=== PATIENT | male | born 1990 | race Caucasian/White ===

== ENCOUNTER → 2016-12-14 | Outpatient (CLI) | payer MEDICAID ==
[~2016-12-14] MED LIST: BACTRIM DS 8001 TA1 PO; BACTROBAN2% TP; DOXYCYCLINE HY100 M4 PO; KEFLEX 500MG.500 MG PO
== END ==
LOC: RT 15:53
DX: G47.33 Obstructive sleep apnea (adult) (pediatric) (principal)

== ENCOUNTER 2017-01-19 20:05 | Emergency (ER) | payer MEDICAID ==
[~2017-01-19] VITALS: Ht 180.3 cm; Wt 102.1 kg
--- NOTE | 2017-01-19 20:24 | Urgent Treatment Center Report ---
History of Present Issue Date/Time Seen by Provider 01/19/17 2017 Visit Reason Pt arrived:Walked Presenting Problem:FLARE UP OF GOUT IN MY RT FOOT SINCE TUESDAY. Location if Accident: Onset of symptoms date/time:/ or onset unknown for:MEDICAL HX UNKNOWN Have you (or family members/close friends) recently traveled outside the [place]? N If Yes, where/when: Have you had exposure to infectious disease within the past month? TB? Other? Specify: Patient states that he has a history of gout State that he thinks he is having a gout flare up State that he has been having pain in his right foot in his right great toe and runs up his foot since Tuesday State that he has an appointment with his family doctor tomorrow but foot was hurting tonight so he came on in to start treatment ALLERGIES Coded Allergies: No Known Allergies (08/04/16) Home Medications Reported Medications No Known Home Medications History Medical History General CAD? No Angina: No [place]: No Hypertension? No Hyperlipidemia? No CHF? No DVT? No PE? No COPD? No Asthma? No Anemia? No GERD? No Gastric ulcers? No GI Bleed? No Hernia? No Thyroid Problems? No Hypothyroidism? No CVA? No Seizures? No Diabetes? No Renal Insuffiency? No UTI? No Stones? No BPH? No GB Disease: No Nephritic Syndrome? No Asplenia? No Hepatitis? No Sickle Cell Disease? No Arthritis? No Migraines? No Cataracts? No Glaucoma? No MRSA? No HIV? No TB? No Anxiety? No Depression? No Cancer? No More? No Immunization HX DT/Tetanus 5-10 Years Ago Surgical Hx Previous Surgery?N Social History Smoking Hx Smoker: Never Smoker Tobacco: No Packs/day N/A Alcohol Alcohol: No Review of Systems All Other Systems Reviewed and Negative Comment Pain redness and swelling in right great toe and foot has history of gout thinks he may be having a gout flare up Physical Exam Vital Signs Vital Signs Date Time Temp Pulse Resp B/P Pulse O2 O2 Flow FiO2 Ox Delivery Rate 01/19 2033 18 01/20 2012 97.9 106 20 118/85 98 General Appearance normal appearance, WD/WN, no apparent distress Respiratory Status Yes: trachea midline, chest symmetrical, non tender chest. No: respiratory distress. 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 No Results/Orders Laboratory Tests 01/19/172028: Uric Acid 9.7 H Current Medication Orders Sig/Raman Start time Last Medication Dose Route Stop Time Status Admin Ketorolac 60 MG ONCE ONE 01/19 2030 DC 01/19 Tromethamine IM 01/19 Methylprednisolone 125 MG ONCE ONE 01/19 2030 DC 01/19 Sodium Succinate IM 01/19 Ketorolac 0 .STK-MED ONE 01/19 2021 DC Tromethamine .ROUTE Methylprednisolone 0 .STK-MED ONE 01/19 2021 DC Sodium Succinate .ROUTE Orders Procedure Date/time Status URIC ACID 01/20 2020 Complete Departure Departure Time of Disposition 2051 Disposition DC Home or Self Care(routine) Clinical Impression Primary Impression: Gout flare Qualifiers: Gout site: foot Gout etiology: unspecified cause Laterality: right Qualified Code: M10.9 - Gout, unspecified Condition STABLE Referrals PETER BRIAN (Family) Patient Instructions DI for Gout Additional Instructions Follow up with family doctor tomorrow as previously scheduled Over the counter motrin for fever and pain Avoid red meat and alcoholic beverages as these can make gout flare ups worse Return if needed Discharge Counseling Counseled pt/family regarding diagnosis, test results, medications/RX, home care, follow up needs Prescriptions Current Visit Scripts Colchicine (Colcrys 0.6MG) 0.6 MG PO BID #60 TAB take 2 tablets on the first day... then take one tablet every twelve hours at 2057
[2017-01-19 21:05] VITALS: BP 118/85
== END 2017-01-19 21:05 | disposition home or self-care (01) ==
LOC: UTC 20:05
DX: M10.9 Gout, unspecified (principal)

== ENCOUNTER 2017-04-04 13:08 | Emergency (ER) | payer MEDICAID ==
[~2017-04-04] VITALS: Ht 180.3 cm; Wt 113.4 kg
[~2017-04-04 13:08] MED LIST changes: +COLCRYS0.6 M1 PO
--- NOTE | 2017-04-04 15:33 | Urgent Treatment Center Report ---
History of Present Issue Date/Time Seen by Provider 04/04/17 1533 Visit Reason Pt arrived:Walked Presenting Problem:C/O WEAKNESS, HEAD CONGESTION, AND YELLOW/GREEN SPUTUM Location if Accident: Onset of symptoms date/time:/ or onset unknown for:MEDICAL HX UNKNOWN Have you (or family members/close friends) recently traveled outside the [place]? N If Yes, where/when: Have you had exposure to infectious disease within the past month? TB? Other? Specify: c/o cough, rhinorrhea, nasal congestion for around 1 week. Mother in law with similiar symptoms first and now girlfriend. no fever. Cough unchanged with tylenol/motrin. Hasn't taken or tried anything else. Needing work note for today. Source patient Exam Limitations no limitations ALLERGIES Coded Allergies: No Known Allergies (08/04/16) History Medical History General CAD? No Angina: No [place]: No Hypertension? No Hyperlipidemia? No CHF? No DVT? No PE? No COPD? No Asthma? No Anemia? No GERD? No Gastric ulcers? No GI Bleed? No Hernia? No Thyroid Problems? No Hypothyroidism? No CVA? No Seizures? No Diabetes? No Renal Insuffiency? No UTI? No Stones? No BPH? No GB Disease: No Nephritic Syndrome? No Asplenia? No Hepatitis? No Sickle Cell Disease? No Arthritis? No Migraines? No Cataracts? No Glaucoma? No MRSA? No HIV? No TB? No Anxiety? No Depression? No Cancer? No More? No Immunization HX DT/Tetanus 5-10 Years Ago Surgical Hx Previous Surgery?N Social History Smoking Hx Smoker: Never Smoker Tobacco: No Packs/day N/A Alcohol Alcohol: No Review of Systems All Other Systems Reviewed and Negative Constitutional see HPI, denies chills, denies fever, denies malaise Eyes denies drainage ENT nose discharge, nose congestion, throat pain (at first). denies: ear pain. Respiratory see HPI, denies shortness of breath, denies wheezing Cardiovascular denies chest pain Musculoskeletal denies joint pain Skin denies rash Psychiatric/Neurological denies headache Physical Exam Vital Signs Vital Signs Date Time Temp Pulse Resp B/P Pulse O2 O2 Flow FiO2 Ox Delivery Rate 04/04 1628 98.6 77 20 129/80 97 04/04 1457 98.6 77 20 129/80 97 General Appearance normal appearance, no apparent distress Eye Exam - bilateral eye normal exam Ear, Nose, Throat normal ENT inspection Neck non-tender, supple Respiratory Status No: respiratory distress, productive cough, non productive cough. Lung Sounds anterior: lungs clear. posterior: lungs clear. bilateral: lungs clear. Cardiovascular regular rate/rhythm, no peripheral edema, no murmur Neurologic alert, oriented x 3 Skin warm/dry Lymphatic no adenopathy Medical Decision Making LABS/Meds/Orders Pt receiving controlled substance in ED? No Departure Departure Time of Disposition 1623 Disposition DC Home or Self Care(routine) Clinical Impression Primary Impression: Upper respiratory virus Condition STABLE Referrals NO REFERRAL IMMEDIATELY for new or worsening symptoms OR no noticeable improvement over the next 48-72 hours. 911 for difficulty breathing or swallowing. Patient Instructions DI for Viral Upper Respiratory Infection -- Adult Additional Instructions * No sign of bacterial infection. Likely viral. Virus can take 7-14 days to run their course * Monitor Temp. If fever develops, be sure to follow up * Encourage fluids, water, gatorade, powerade, pedialyte if infant/toddler/child * warm salt water gargles * warm fluids * sore throat lozenges * sleep elevated * humidifier/vaporizer * Bromfed may cause drowsiness. Know how it effects you (or your child) before driving, caring for small children, or sending your child to school. No other antihistamines/allergy medications while taking bromfed. Discharge Counseling Counseled pt/family regarding diagnosis, medications/RX, home care, follow up needs Prescriptions Current Visit Scripts D-METHORPHAN HB/P-EPD HCL/BPM (Bromfed Dm Cough Syrup) 10 ML PO QIDP PRN cough #240 ML at 1630
[2017-04-04] MEDS ORDERED: BROMFED DM COU118 ML PO (16:24)
[2017-04-04 16:28] VITALS: BP 129/80
== END 2017-04-04 16:29 | disposition home or self-care (01) ==
LOC: UTC 13:08
DX: J06.9 Acute upper respiratory infection, unspecified (principal)

== ENCOUNTER 2017-04-10 21:12 | Emergency (ER) | payer MEDICAID ==
[~2017-04-10] VITALS: Ht 180.3 cm; Wt 99.8 kg
[~2017-04-10 21:12] MED LIST changes: +BROMFED DM COU118 ML PO
[2017-04-10] MEDS ORDERED: ERYTHROMYC3.5 GM/TUB OP (21:29)
--- NOTE | 2017-04-10 21:30 | Emergency Room Report ---
History of Present Illness Time Seen by [id number] Presenting Problem in Triage Pt arrived:Walked Presenting Problem:right eye swollen, noticed it tonight. no accident that hes aware of, no injury Onset of symptoms date/time:/ or onset unknown for:MEDICAL HX UNKNOWN Treatment Prior to Arrival: [employer] Provided by: Sepsis Risk Assessment: Temp: 98.1 B/P: 126/85 MAP: 98 Pulse: 86 Resp: 16 Recent fever? N Clinical Suspician of Infection? N Mental Status: 1 - Regular (Normal Baseline) Sepsis Risk:Low Sepsis Risk Have you (or family members/close friends) recently traveled outside the [place]? N If Yes, where/when: Have you had exposure to infectious disease within the past month? N TB? Other? Specify: Source patient, RN notes reviewed, family, RN/MD Exam Limitations no limitations Comment This is a 27-year-old male presenting to the emergency room with right eye swelling, yellowish drainage, pain for the past 24 hours. He denies any eye trauma. ALLERGIES Coded Allergies: No Known Allergies (08/04/16) Home Medications Active Scripts D-METHORPHAN HB/P-EPD HCL/BPM (Bromfed Dm Cough Syrup) 10 ML PO QIDP PRN cough #240 ML Prov: 04/04/17 History Medical History General CAD? No Angina: No [place]: No Hypertension? No Hyperlipidemia? No CHF? No DVT? No PE? No COPD? No Asthma? No Anemia? No GERD? No Gastric ulcers? No GI Bleed? No Hernia? No Thyroid Problems? No Hypothyroidism? No CVA? No Seizures? No Diabetes? No Renal Insuffiency? No End Stage Renal Disease? No UTI? No Stones? No BPH? No GB Disease: No Nephritic Syndrome? No Asplenia? No Hepatitis? No Sickle Cell Disease? No Arthritis? No Migraines? No Cataracts? No Glaucoma? No MRSA? No HIV? No TB? No Anxiety? No Depression? No Cancer? No More? No Immunization Hx DT/Tetanus 5-10 Years Ago Surgical Hx Previous Surgery?N Social History Smoking Hx Smoker: Never Smoker Tobacco: Yes Type Snuff Packs/day N/A Alcohol Alcohol: No Review of Systems All Other Systems Reviewed and Negative Eyes see HPI, drainage (right eye), inflammation (right eye), pain (right eye) Physical Exam Vital Signs Vital Signs Date Time Temp Pulse Resp B/P Pulse O2 O2 Flow FiO2 Ox Delivery Rate 04/10 2140 98.1 86 16 126/85 98 04/10 2119 98.1 86 16 126/85 98 General Appearance normal appearance, WD/WN, no apparent distress Eye Exam - right eye eyelid inflammation, bilateral eye normal exam, bilateral eye PERRL , bilateral eye EOMI, bilateral eye other (normal fundi) Respiratory Status Yes: trachea midline, chest symmetrical, non tender chest. No: respiratory distress. Lung Sounds bilateral: normal breath sounds, lungs clear. 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 No Comment 2099-05 is consistent with conjunctivitis, patient advised to follow up with [facility] if any further medical needs. He'll be discharged home on erythromycin ophthalmic ointment. Results/Orders Current Medication Orders Sig/Raman Start time Last Medication Dose Route Stop Time Status Admin Erythromycin 1 GM ONCE ONE 04/10 2145 DC 04/10 OP 04/10 Miscellaneous 0 .STK-MED ONE 04/10 2127 DC XX Departure Departure Time of Disposition 2125 Disposition DC Home or Self Care(routine) Clinical Impression Primary Impression: Conjunctivitis Qualifiers: Conjunctivitis type: acute Acute conjunctivitis type: bacterial Laterality: right Qualified Code: H10.31 - Unspecified acute conjunctivitis, right eye Condition STABLE Referrals [facility] if not better Patient Instructions DI for Conjunctivitis Additional Instructions Please use the medication prescribed as instructed, follow up with [facility] if not better. Discharge Counseling Counseled pt/family regarding diagnosis, test results, medications/RX, home care, follow up needs Comment Please use the medication prescribed as instructed, follow up with [facility] if not better. Prescriptions Current Visit Scripts Erythromycin (Erythromycin Ophth Oint 3.5GM Tube) 1 GM OP Q6H #1 OIN right eye, every 6 hrs x 1 week ED Critical Care Critical Care No at 0700
--- NOTE | 2017-04-10 21:30 | Emergency Room Report ---
History of Present Illness Time Seen by [id number] Presenting Problem in Triage Pt arrived:Walked Presenting Problem:right eye swollen, noticed it tonight. 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 N Clinical Suspician of Infection? N Mental Status: 1 - Regular (Normal Baseline) Sepsis Risk:Low Sepsis Risk Have you (or family members/close friends) recently traveled outside the [place]? N If Yes, where/when: Have you had exposure to infectious disease within the past month? N TB? Other? Specify: Source patient, RN notes reviewed, family, RN/MD Exam Limitations no limitations Comment This is a 27-year-old male presenting to the emergency room with right eye swelling, yellowish drainage, pain for the past 24 hours. He denies any eye trauma. ALLERGIES Coded Allergies: No Known Allergies (08/04/16) Home Medications Active Scripts D-METHORPHAN HB/P-EPD HCL/BPM (Bromfed Dm Cough Syrup) 10 ML PO QIDP PRN cough #240 ML Prov: 04/04/17 History Medical History General CAD? No Angina: No [place]: No Hypertension? No Hyperlipidemia? No CHF? No DVT? No PE? No COPD? No Asthma? No Anemia? No GERD? No Gastric ulcers? No GI Bleed? No Hernia? No Thyroid Problems? No Hypothyroidism? No CVA? No Seizures? No Diabetes? No Renal Insuffiency? No End Stage Renal Disease? No UTI? No Stones? No BPH? No GB Disease: No Nephritic Syndrome? No Asplenia? No Hepatitis? No Sickle Cell Disease? No Arthritis? No Migraines? No Cataracts? No Glaucoma? No MRSA? No HIV? No TB? No Anxiety? No Depression? No Cancer? No More? No Immunization Hx DT/Tetanus 5-10 Years Ago Surgical Hx Previous Surgery?N Social History Smoking Hx Smoker: Never Smoker Tobacco: Yes Type Snuff Packs/day N/A Alcohol Alcohol: No Review of Systems All Other Systems Reviewed and Negative Eyes see HPI, drainage (right eye), inflammation (right eye), pain (right eye) Physical Exam Vital Signs Vital Signs Date Time Temp Pulse Resp B/P Pulse O2 O2 Flow FiO2 Ox Delivery Rate 04/10 2140 98.1 86 16 126/85 98 04/10 2119 98.1 86 16 126/85 98 General Appearance normal appearance, WD/WN, no apparent distress Eye Exam - right eye eyelid inflammation, bilateral eye normal exam, bilateral eye PERRL , bilateral eye EOMI, bilateral eye other (normal fundi) Respiratory Status Yes: trachea midline, chest symmetrical, non tender chest. No: respiratory distress. Lung Sounds bilateral: normal breath sounds, lungs clear. 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 No Comment [id number] is consistent with conjunctivitis, patient advised to follow up with [facility] if any further medical needs. He'll be discharged home on erythromycin ophthalmic ointment. Results/Orders Current Medication Orders Sig/Raman Start time Last Medication Dose Route Stop Time Status Admin Erythromycin 1 GM ONCE ONE 04/10 2145 DC 04/10 OP 04/10 Miscellaneous 0 .STK-MED ONE 04/10 2127 DC XX Departure Departure Time of Disposition 2125 Disposition DC Home or Self Care(routine) Clinical Impression Primary Impression: Conjunctivitis Qualifiers: Conjunctivitis type: acute Acute conjunctivitis type: bacterial Laterality: right Qualified Code: H10.31 - Unspecified acute conjunctivitis, right eye Condition STABLE Referrals [facility] if not better Patient Instructions DI for Conjunctivitis Additional Instructions Please use the medication prescribed as instructed, follow up with [facility] if not better. Discharge Counseling Counseled pt/family regarding diagnosis, test results, medications/RX, home care, follow up needs Comment Please use the medication prescribed as instructed, follow up with [facility] if not better. Prescriptions Current Visit Scripts Erythromycin (Erythromycin Ophth Oint 3.5GM Tube) 1 GM OP Q6H #1 OIN right eye, every 6 hrs x 1 week ED Critical Care Critical Care No at 0700
[2017-04-10 21:40] VITALS: BP 126/85
== END 2017-04-10 21:50 | disposition home or self-care (01) ==
LOC: ER 21:12
DX: H10.31 Unspecified acute conjunctivitis, right eye (principal)